=== PATIENT | male | born 1950 | race Caucasian/White ===

== ENCOUNTER 2019-05-21 07:30 | Inpatient (IN) ==
[2019-09-08] MEDS ORDERED: Lactated Ringers 1000 ml BAG 1,000 ML IV SCH (06:00)
[2019-09-08] MEDS ORDERED: Buffered Lidocaine 1% SYRIN 1 ml INTRADERM ONE (06:00)
[2019-09-08] MEDS ORDERED: Rocuronium 50 mg VIAL 10 mg/ml 5 ml VIAL (50 mg) ONE (06:40)
[2019-09-08] MEDS ORDERED: Succinylcholine 200 mg VIAL 20 mg/ml 10 ml VIAL (200 mg) ONE (06:40)
[2019-09-08] MEDS ORDERED: Dexamethasone IV 4 MG/ML VIAL 1 ml VIAL ONE (06:40)
[2019-09-08] MEDS ORDERED: Ondansetron 4 mg VIAL 2 MG/ML 2 ml VIAL ONE (06:40)
[2019-09-08] MEDS ORDERED: EPHEDrine (Pressors) 50 MG/ML VIAL ONE (06:40)
[2019-09-08] MEDS ORDERED: Propofol 10 MG/ML 20 ML BTL ONE (06:40)
[2019-09-08] MEDS ORDERED: Acetaminophen IV 1 GM/100ML 100 ML ONE (06:40)
[2019-09-08] MEDS ORDERED: fentaNYL 100 mcg/2 ml 50 MCG/ML VIAL ONE (06:40)
[2019-09-08] MEDS ORDERED: Midazolam 2 mg/2 ml VIAL 1 mg/ml 2 ml VIAL (2 mg) ONE (06:41)
[2019-09-08] MEDS ORDERED: ceFAZolin 2 GM PREMIX 2 GM/50 ML BAG ONE (06:50)
[2019-09-08] MEDS ORDERED: Prochlorperazine 5 mg/ml 2 ml VIAL (10 mg) IV PRN (07:01)
[2019-09-08] MEDS ORDERED: HYDROmorphone 1 MG/1 ML SYRINGE IV PRN (07:01)
[2019-09-08] MEDS ORDERED: fentaNYL 100 mcg/2 ml 50 MCG/ML VIAL IV PRN (07:01)
[2019-09-08] MEDS ORDERED: Naloxone 0.4 mg VIAL 0.4 mg/ml 1 ml VIAL IV PRN (07:01)
[2019-09-08] MEDS ORDERED: diPHENhydraMINE IV 50 MG/ML 1 ml VIAL (BENADRYL) IV PRN ×2 (07:01→10:34)
[2019-09-08] MEDS ORDERED: ROPIVACAINE 5 MG/ML 30 ML BTL (0.5%) ONE (08:52)
[2019-09-08] MEDS ORDERED: Magnesium Hydroxide LIQ 30 ML UDC PO PRN (10:34)
[2019-09-08] MEDS ORDERED: Lactulose 30 ml UDC PO PRN (10:34)
[2019-09-08] MEDS ORDERED: oxyCODONE/Acetamin 5/325 mg TAB PO PRN (10:34)
[2019-09-08] MEDS ORDERED: Ondansetron ODT 4 mg TAB 4 MG TAB PO PRN (10:34)
[2019-09-08] MEDS ORDERED: diPHENhydraMINE 25 mg TAB PO PRN (10:34)
[2019-09-08] MEDS ORDERED: Ondansetron 4 mg VIAL 2 MG/ML 2 ml VIAL IV PRN (10:34)
[2019-09-08] MEDS ORDERED: Dextrose 50% Syringe 50 ml 25 GM/50 ML SYRINGE IV PUSH PRN (12:06)
[2019-09-08] MEDS: Lactated Ringers 1000 ml BAG 1,000 ML IV SCH ×2 (12:10→22:26)
[2019-09-08] MEDS: oxyCODONE/Acetamin 5/325 mg TAB PO PRN ×3 (13:13→22:08)
[2019-09-08] MEDS: ceFAZolin 1 GM ADVAN 1 GM in NS 0.9% 50 ML 50 ML IVPB SCH (16:49)
[2019-09-08] MEDS: Magnesium Hydroxide LIQ 30 ML UDC PO SCH (22:08)
[2019-09-09] MEDS: ceFAZolin 1 GM ADVAN 1 GM in NS 0.9% 50 ML 50 ML IVPB SCH ×2 (00:32→08:15)
[2019-09-09] MEDS: oxyCODONE/Acetamin 5/325 mg TAB PO PRN ×3 (02:33→12:41)
[2019-09-09 06:50] LABS: Hematocrit 38 % (42-52); Hemoglobin 13.3 g/dL (14.0-18.0); Mean Platelet Volume 8.2 fL (7.4-10.4); Platelet Count 215 10^3/uL (150-450)
[2019-09-09 07:05] LABS: BUN/Creatinine Ratio 28.7 (8-20); EGFR African American 105.6 (>60); EGFR Non-African American 87.3 (>60); Potassium 3.9 mmol/L (3.5-5.0)
[2019-09-09] MEDS: Magnesium Hydroxide LIQ 30 ML UDC PO SCH (08:16)
[2019-09-09] MEDS ORDERED: Vitamin THERAPEUTIC TAB PO SCH (09:00)
[2019-09-09 11:08] VITALS: BP 127/65
== END 2019-09-09 13:15 | disposition home or self-care (01) | DRG 470 ==
LOC: AA 09-08 06:30 → SSU 09-08 10:34
PROVIDERS: ADMIT Orthopaedic Surgery Adult Reconstructive Orthopaedic Surgery; ATTEND Orthopaedic Surgery Adult Reconstructive Orthopaedic Surgery

== ENCOUNTER 2023-05-16 07:30 | Observation (INO) ==
[~2023-05-16 07:30] MED LIST: Acetaminophen IV 1 GM/100ML 1,000 MG/100 ML BAG IV PRN; Naloxone 0.4 mg VIAL 0.4 mg/ml 1 ml VIAL IV PRN; Ondansetron 4 mg VIAL 2 MG/ML 2 ml VIAL IV PRN
[2023-05-16] MEDS ORDERED: ceFAZolin 2 GM PREMIX 2 GM/50 ML BAG ONE (12:15)
[2023-05-16 13:03] LABS: Rapid COVID-19 Molecular Undetected (Undetected)
[2023-05-16] MEDS ORDERED: Midazolam 2 mg/2 ml VIAL 1 mg/ml 2 ml VIAL (2 mg) ONE (14:07)
[2023-05-16] MEDS ORDERED: ROPIVACAINE 5 MG/ML 30 ML BTL (0.5%) ONE (14:12)
[2023-05-16] MEDS ORDERED: Propofol 10 MG/ML 20 ML BTL ONE (14:45)
[2023-05-16] MEDS ORDERED: Bupivacaine-MPF SPINAL 7.5 MG/ML - 2ML AMP ONE (14:46)
[2023-05-16] MEDS ORDERED: Acetaminophen IV 1 GM/100ML 1,000 MG/100 ML BAG IV ONE (15:42)
[2023-05-16] MEDS ORDERED: Magnesium Hydroxide LIQ 30 ML UDC PO PRN (16:44)
[2023-05-16] MEDS ORDERED: Morphine 2 MG/ML SYRINGE IV PRN (16:44)
[2023-05-16] MEDS ORDERED: Lactulose 30 ml UDC PO PRN (16:44)
[2023-05-16] MEDS ORDERED: Ondansetron 4 mg VIAL 2 MG/ML 2 ml VIAL IV PRN (16:44)
[2023-05-16] MEDS ORDERED: Ondansetron ODT 4 mg TAB 4 MG TAB PO PRN (16:44)
[2023-05-16] MEDS ORDERED: fentaNYL 100 mcg/2 ml 50 MCG/ML VIAL ONE (17:31)
[2023-05-16] MEDS: fentaNYL 100 mcg/2 ml 50 MCG/ML VIAL IV PRN (17:33)
[2023-05-16] MEDS ORDERED: HYDROmorphone 1 MG/1 ML SYRINGE ONE (17:50)
[2023-05-16] MEDS: HYDROmorphone 1 MG/1 ML SYRINGE IV PRN (17:51)
[2023-05-16] MEDS: Lactated Ringers 1000 ml BAG 1,000 ML IV SCH (19:00)
[2023-05-16] MEDS: Buffered Lidocaine 1% SYRIN 1 ml INTRADERM ONE (22:09)
[2023-05-16] MEDS: Magnesium Hydroxide LIQ 30 ML UDC PO SCH (22:11)
[2023-05-16] MEDS: ceFAZolin 1 GM ADVAN 1 GM in NS 0.9% 50 ML 50 ML IVPB SCH (23:43)
[2023-05-17 06:29] LABS: Hematocrit 40.1 % (38-53); Hemoglobin 13.8 g/dL (13.2-16.3); Mean Platelet Volume 8.1 fL (7.5-11.2); Platelet Count 213 10^3/uL (150-450)
[2023-05-17 06:50] LABS: Calcium 8.6 mg/dL (8.6-10.3); Creatinine, Serum 0.78 mg/dL (0.67-1.17); Potassium 4.4 mmol/L (3.5-5.0); eGFR CKD-EPI 94.8 (>60)
[2023-05-17] MEDS: Lactated Ringers 1000 ml BAG 1,000 ML IV SCH (07:25)
[2023-05-17] MEDS: Vitamin THERAPEUTIC TAB PO SCH (08:42)
[2023-05-17 14:50] VITALS: BP 150/80
== END 2023-05-17 17:08 | disposition home or self-care (01) ==
LOC: SSU → INTOOBSV 11:51 → AA 11:51
PROVIDERS: ADMIT Orthopaedic Surgery Adult Reconstructive Orthopaedic Surgery; ATTEND Orthopaedic Surgery Adult Reconstructive Orthopaedic Surgery